=== PATIENT | female | born 1985 | race Caucasian/White ===

== ENCOUNTER 2022-05-05 09:29 | Outpatient (CLI) | payer OTHER, SELFPAY ==
[2022-05-05 12:51] LABS: Cholesterol* 217 mg/dL (90-199); Glucose* 90 mg/dL (60-115); HDL Cholesterol* 50 mg/dL (>=50); LDL Cholesterol Calculated 144 mg/dL (<100); Triglycerides* 117 mg/dL (40-149)
[2022-05-05 13:18] LABS: TSH With Reflex to FT4* 0.745 uIU/mL (0.270-4.200)
[2022-05-07 04:15] LABS: Immunoglobulin A 287 mg/dL (68-408)
[2022-05-07 17:24] LABS: Tissue Transglutaminase IgA <2 U/mL (0-3)
== END 2022-05-05 09:30 | disposition home or self-care (01) ==
PROVIDERS: PCP Physician Assistant Medical; Visit Provider Physician Assistant Medical
DX: Z01.419 Encounter for gynecological examination (general) (routine) without abnormal findings (principal); Z13.1 Encounter for screening for diabetes mellitus; Z13.6 Encounter for screening for cardiovascular disorders; Z13.29 Encounter for screening for other suspected endocrine disorder
CPT/HCPCS: 80061; 82784; 82947; 84443; 86364; 87624; 88175

== ENCOUNTER 2022-07-12 15:25 | Outpatient (CLI) | payer BC, SELFPAY ==
[2022-07-12 22:33] LABS: Chloride* 102 mmol/L (96-114)
[2022-07-12 22:34] LABS: Albumin* 5.3 g/dL (3.3-5.0); Potassium* 4.4 mmol/L (3.6-5.1); Sodium* 140 mmol/L (135-149)
[2022-07-12 22:36] LABS: Creatinine* 0.7 mg/dL (0.5-1.5); Estimated Glomerular Filt Rate 113 ml/min
[2022-07-12 22:37] LABS: Alanine Aminotransferase* 23 U/L (4-35); Alkaline Phosphatase* 66 U/L (40-150); Aspartate Amino Transferase* 25 U/L (12-35); Bilirubin Total* 0.7 mg/dL (0.1-1.5); Blood Urea Nitrogen* 13 mg/dL (5-24); Carbon Dioxide* 27 mmol/L (20-32); Total Protein* 8.2 g/dL (6.0-8.3)
[2022-07-12 22:38] LABS: Calcium* 9.1 mg/dL (8.4-10.6); Glucose* 90 mg/dL (60-115)
[2022-07-12 22:48] LABS: C Reactive Protein* < 0.5 mg/dL (0.5-1.0)
== END 2022-07-12 15:26 | disposition home or self-care (01) ==
PROVIDERS: PCP Physician Assistant Medical; Visit Provider Physician Assistant Medical
DX: R23.9 Unspecified skin changes (principal)
CPT/HCPCS: 80053; 86140; 87086

== ENCOUNTER 2022-08-12 07:57 | Outpatient (CLI) | payer BC, SELFPAY | END 2022-08-12 07:58 | disposition home or self-care (01) | PROVIDERS: PCP Physician Assistant Medical; Visit Provider Surgery | DX: K92.1 Melena (principal); K64.8 Other hemorrhoids | CPT/HCPCS: 45378; 99153; J1200; J2250; J3010 ==

== ENCOUNTER 2024-06-21 09:03 | Outpatient (CLI) | payer OTHER, SELFPAY | END 2024-06-21 09:04 | disposition home or self-care (01) | LOC: NFLDREF 06-24 11:51 | PROVIDERS: PCP Physician Assistant Medical; Referring Provider Physician Assistant Medical; Visit Provider Physician Assistant Medical | DX: Z13.0 Encounter for screening for diseases of the blood and blood-forming organs and certain disorders involving the immune mechanism (principal); Z13.1 Encounter for screening for diabetes mellitus; Z13.6 Encounter for screening for cardiovascular disorders | CPT/HCPCS: 80053; 80061 ==

== ENCOUNTER 2024-09-07 11:23 | Outpatient (CLI) | payer OTHER, SELFPAY ==
--- NOTE | 2024-09-07 11:30 | CRLHL7_ITS ---
For Patients: As a result of the Cures Act, medical imaging exams and procedure reports are released immediately into your electronic medical record. You may view this report before your referring provider. If you have questions, please contact your health care provider. BILATERAL SCREENING MAMMOGRAM WITH COMPUTER-AIDED DETECTION AND TOMOSYNTHESIS TECHNIQUE: CC and MLO views were obtained. These mammographic images have been obtained using full-field digital technique. These mammographic images were interpreted with the benefit of computer-aided detection. Breast tomosynthesis was used in this interpretation. COMPARISON FILM: None. This is a baseline study. FINDINGS: The breasts are extremely dense, which lowers the sensitivity of mammography. IMPRESSION: There is no radiographic evidence for malignancy. ASSESSMENT: BI-RADS Category 1: Negative RECOMMENDATION: Routine screening mammogram in 1 year. A lay language report of this examination will be provided to the patient. ADRIANO SRINIVASAN M.D. Diagnostic Radiologist [email or web address] Transcribed: 09/10/2024, 12:[address]/Dictated by: Adriano Srinivasan MD @ 09/10/2024 8:40:00 AM (Electronically Signed)
== END 2024-09-07 11:24 | disposition home or self-care (01) ==
LOC: MAMMO 11:24
PROVIDERS: PCP Physician Assistant Medical; Visit Provider Physician Assistant Medical
DX: Z12.31 Encounter for screening mammogram for malignant neoplasm of breast (principal); R92.343 Mammographic extreme density, bilateral breasts
CPT/HCPCS: 77063; 77067

== ENCOUNTER 2025-06-13 11:53 | Outpatient (CLI) | payer OTHER, SELFPAY ==
[2025-06-13 23:38] LABS: Chlamydia DNA Amplified* NOT DETECTED (No Detected); GC DNA Amplified* NOT DETECTED (No Detected)
[2025-06-15 21:34] LABS: HPV Source Cervix
[2025-06-19 07:48] LABS: Pap Test Digital Imaging Done
== END 2025-06-13 11:54 | disposition home or self-care (01) ==
PROVIDERS: PCP Physician Assistant Medical; Visit Provider Physician Assistant Medical
DX: Z00.00 Encounter for general adult medical examination without abnormal findings (principal); N95.1 Menopausal and female climacteric states
CPT/HCPCS: 84443; 87491; 87591; 87624; 87625; 88141; 88142; 88175